=== PATIENT | male | born 1995 | race Caucasian/White ===

== ENCOUNTER 2018-02-20 20:49 | Emergency (ER) | payer OTHER ==
[2018-02-20 20:53] VITALS: BP 116/78
[2018-02-20] MEDS ORDERED: TDAP ADULT 0.5 ML INJ (BOOSTRIX) IM ONE (21:25)
[2018-02-20] MEDS ORDERED: SKIN ADHESIVE (DERMABOND) 1 EACH TP ONE (21:35)
--- NOTE | 2018-02-20 21:40 | EDPHY ---
H & P Time Seen by Provider: 02/20/18 21:03 HPI/ROS: Chief complaint: Lacerations left 2nd and 3rd finger History of present illness: 22-year-old male presents to the emergency department for evaluation of lacerations to his left 2nd and 3rd finger. He was cutting bread with a knife when the knife slipped and cut the flexor surface of his fingers. Minimal pain. There has been bleeding that has been controlled with a dressing. He is still able to move the fingers well. No report of abnormal coolness or paresthesias. He is unsure of his last tetanus shot. Smoking Status: Never smoked Physical Exam: General: Alert, nontoxic Skin: There is a 1 cm laceration to the flexor surface of the 2nd and 3rd finger overlying the proximal phalanx. Pressures exerted on the wound edges to tried to separate them but they will not. These appear superficial. I do not appreciate a deep structure involvement. Musculoskeletal: Patient is flexing and extending the left 2nd and 3rd digit in the MCP, PIP and the DIP joint well. Vascular: Capillary refill is brisk in the left 2nd and 3rd finger. Neurologic: Sensation intact using light touch and two-point discrimination. Constitutional: Initial Vital Signs Temperature (C) 36.8 C 02/20/18 20:49 Heart Rate 73 02/20/18 20:49 Respiratory Rate 16 02/20/18 20:49 Blood Pressure 116/78 02/20/18 20:49 O2 Sat (%) 95 02/20/18 20:49 O2 Delivery Mode Room Air Allergies/Adverse Reactions: No Known Allergies Allergy (Unverified 02/20/18 20:53) Home Medications: Medication Instructions Recorded Venlafaxine Xr [Effexor Xr 37.5MG 37.5 mg PO 02/20/18 (*)] MDM/Departure - MDM Procedures: Procedure: Laceration repair. Verbal consent was obtained from the patient. The 1 cm laceration on the flexor surface of the left 2nd and 3rd finger was irrigated, draped and explored to its base with a gloved finger. There were no deep structures involved. No tendon injury was identified. The wound was repaired with Dermabond. The wound repair was simple. The procedure was performed by myself. Medications Given: Discontinued Medications Diphtheria/Tetanus/Acell Pertussis (Boostrix) 0.5 ml IM .ONCE ONE Stop: 02/20/18 21:26 Last Admin: 02/20/18 21:42 Dose: 0.5 ml ED Course/Re-evaluation: Patient seen under the supervision of my secondary supervising physician Dr. Glen Mcarthur. Patient presents to the emergency department for lacerations to his left 2nd and 3rd fingers. These appear to be superficial. He has good musculoskeletal control. They are neurovascularly intact. As there superficial they are derma bonded. His tetanus is updated. Home care is discussed. Return precautions are given. Differential Diagnosis: Included but not limited to superficial laceration, deep structure injury, foreign body contamination - Depart Disposition: Home, Routine, Self-Care Clinical Impression: Finger laceration Qualifiers: Encounter type: initial encounter Finger: unspecified finger Damage to nail status: without damage Foreign body presence: without foreign body Laterality: left Qualified Code(s): S61.219A - Laceration without foreign body of unspecified finger without damage to nail, initial encounter Condition: Good Instructions: Laceration (ED), Skin Adhesive Care (ED) Additional Instructions: Follow-up with your primary care doctor or a hand doctor for recheck If symptoms worsen or new symptoms develop return to the emergency room for recheck Referrals: Mekhi Andujar MD [Primary Care Provider] - As per Instructions Chuckie Agrawal MD [Medical Doctor] - As per Instructions
== END 2018-02-20 21:50 | disposition home or self-care (01) ==
PROC: 0HQGXZZ Repair Left Hand Skin, External Approach (ICD-10-PCS; principal; 2018-02-20)
DX: S61.211A Laceration without foreign body of left index finger without damage to nail, initial encounter (principal); W26.8XXA Contact with other sharp object(s), not elsewhere classified, initial encounter; Y92.019 Unspecified place in single-family (private) house as the place of occurrence of the external cause; Z23 Encounter for immunization
CPT/HCPCS: L3925